=== PATIENT | male | born 1965 | race Caucasian/White ===

== ENCOUNTER 2021-06-12 12:57 | Emergency (ER) | payer BC ==
[2021-06-12] MEDS ORDERED: Lidocaine 1% with EPINEPHrine 1:100,000 50 ML MDV INFILT ONE (14:00)
[2021-06-12] MEDS ORDERED: Bacitracin Oint 1 GM U/D Packet TOP ONE (14:00)
--- NOTE | 2021-06-12 14:05 | EDM.PDOC ---
ED HPI GENERAL MEDICAL PROBLEM - General Chief Complaint: Laceration Stated Complaint: CUT RIGHT ELBOW Time Seen by Provider: 06/12/21 13:22 Source of Information: Reports: Patient History Limitations: Reports: No Limitations - History of Present Illness INITIAL COMMENTS - FREE TEXT/NARRATIVE: 56 yo present to the emergency room with a laceration to his right elbow. He struck his elbow on a piece of metal. laceration occurred 22 hours ago, He did clean injury and steri-stripped it shut. vacationing her from [place]. believes he is up to date on his tetanus. - Related Data Allergies Allergy/AdvReac Type Severity Reaction Status Date / Time No Known Allergies Allergy Verified 06/12/21 13:20 Home Meds: Home Meds NK [No Known Home Meds] 06/12/21 [History] Past Medical History - Past Surgical History GI Surgical History: Reports: Cholecystectomy, Hernia, Abdominal Social & Family History - Tobacco Use Tobacco Use Status *Q: Never Tobacco User - Caffeine Use Caffeine Use: Reports: Coffee - Recreational Drug Use Recreational Drug Use: No ED ROS GENERAL - Review of Systems Review Of Systems: See Below Constitutional: Denies: Fever, Chills Respiratory: Reports: Shortness of Breath. Denies: Wheezing Cardiovascular: Denies: Chest Pain GI/Abdominal: Denies: Abdominal Pain ED EXAM, SKIN/RASH Exam: See Below Exam Limited By: No Limitations General Appearance: Alert, WD/WN, No Apparent Distress Respiratory/Chest: No Respiratory Distress Skin: Warm, Dry, Intact, Wound/Incision (3 cm laceration right elbow moderte edema) ED SKIN PROCEDURES - Laceration/Wound Repair Right Posterior Elbow Appearance: Superficial, Subcutaneous Distal NVT: Neuro & Vascular Intact Anesthetic Type: Local Local Anesthesia - Lidocaine (Xylocaine): 1% with EPI Local Anesthetic Volume: 5cc Skin Prep: Chlorhexidine (Hibiciens), Saline, Sterile Drape Saline Irrigation (cc's): 100 Exploration/Debridement/Repair: Wound Explored, In a Bloodless Field, Explored to Base, Minimal Debridement Closed with: Sutures Lac/Wound length In cm: 2.5 Suture Size: 3-0 Suture Type: Silk, Interrupted, Simple Sterile Dressing Applied: Nurse Tetanus Status Addressed: Yes Complications: No Course - Vital Signs Last Recorded V/S: Last Vital Signs Temp 36.6 C 06/12/21 13:23 Pulse 83 06/12/21 13:23 Resp 15 06/12/21 13:23 BP 142/87 H 06/12/21 13:23 Pulse Ox 98 06/12/21 13:23 - Orders/Labs/Meds Meds: Medications Discontinued Medications Generic Name Dose Route Start Last Admin Trade Name Marlon PRN Reason Stop Dose Admin Bacitracin 1 dose 06/12/21 14:00 06/12/21 14:27 Bacitracin Oint 1 Gm U/D Packet TOP 06/12/21 14:01 1 dose ONETIME ONE Administration Lidocaine/Epinephrine 5 ml 06/12/21 14:00 06/12/21 14:27 Lidocaine 1% With Epinephrine 1:100,000 50 Ml Mdv INFILT 06/12/21 14:01 5 ml ONETIME ONE Administration - Re-Assessments/Exams Free Text/Narrative Re-Assessment/Exam: 06/12/21 14:33 56 yo male presents to the ER 22 hours after laceration to right elbow. wound was explored to the base and the bursa sac was entered. wound was flushed with saline. pt states that he has had allergy to "the normal kind of stitches" Silk was used to close the wound. pressure dressing applied to the elbow to control edema of bursa injury. prophylactic antibiotic of Keflex 500 mg BID for 5 days started. Departure - Departure Time of Disposition: 14:37 Disposition: Home, Self-Care 01 Condition: Good Clinical Impression: Olecranon bursitis, right elbow Laceration of elbow Qualifiers: Encounter type: initial encounter Laterality: right Qualified Code(s): S51.011A - Laceration without foreign body of right elbow, initial encounter - Discharge Information *PRESCRIPTION DRUG MONITORING PROGRAM REVIEWED*: Not Applicable *COPY OF PRESCRIPTION DRUG MONITORING REPORT IN PATIENT CRISPIN: Not Applicable Instructions: Sutures, [place], or Adhesive Wound Closure, [id number] Referrals: PCP,None [Primary Care Provider] - Forms: ED Department Discharge Additional Instructions: silk sutures were placed and should be removed in 7-9 days compression wrap in place until sutures are removed - you can removed the wrap for showing, wash would with warm soapy water pat dry apply triple antibiotic topical and cover then rewrap elbow with compression wrap. The compression wrap with keep the injured bursa from swelling and help it to heal. you will need to be seen in follow-up fro wound check if the elbow become severely painful, fire engine red, purulent drainage ice the elbow to help decrease edema and pain Keflex 500 mg twice daily fro 5 days Sepsis Event Note (ED) - Evaluation Sepsis Screening Result: No Definite Risk - Focused Exam Vital Signs: Vital Signs Temp Pulse Resp BP Pulse Ox 06/12/21 13:23 36.6 C 83 15 142/87 H 98 06/12/21 13:19 36.6 C 83 15 142/87 H 98
== END 2021-06-12 14:49 | disposition home or self-care (01) ==
LOC: JP.ED 12:57
DX: S51.011A Laceration without foreign body of right elbow, initial encounter (principal); M70.21 Olecranon bursitis, right elbow; W26.8XXA Contact with other sharp object(s), not elsewhere classified, initial encounter
CPT/HCPCS: 12001; 99282-25